=== PATIENT | female | born 1975 | race Caucasian/White ===

== ENCOUNTER 2017-03-11 16:26 | Emergency (ER) | payer OTHER ==
[2017-03-11 16:46] VITALS: BP 115/72
[2017-03-11] MEDS ORDERED: Ibuprofen TAB* 600 MG PO ONE (17:05)
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
== END 2017-03-11 17:33 | disposition home or self-care (01) ==
LOC: UCCORT 16:26
DX: R07.0 Pain in throat (principal); R51 Headache; Y04.0XXA Assault by unarmed brawl or fight, initial encounter; Z88.6 Allergy status to analgesic agent; Z88.0 Allergy status to penicillin; Z88.5 Allergy status to narcotic agent
CPT/HCPCS: 99212; A9270-GY; G0463

== ENCOUNTER 2017-09-14 09:32 | Emergency (ER) | payer OTHER ==
[2017-09-14 09:53] VITALS: BP 121/84
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
== END 2017-09-14 11:31 | disposition home or self-care (01) ==
LOC: UCCORT 09:32
DX: Z88.6 Allergy status to analgesic agent (principal); Z88.5 Allergy status to narcotic agent; Z88.0 Allergy status to penicillin; Z88.8 Allergy status to other drugs, medicaments and biological substances; S50.11XA Contusion of right forearm, initial encounter; W22.8XXA Striking against or struck by other objects, initial encounter; Y93.89 Activity, other specified; Y92.9 Unspecified place or not applicable
CPT/HCPCS: 99212; G0463

== ENCOUNTER 2018-10-07 10:57 | Emergency (ER) | payer OTHER ==
--- OUTSIDE RECORDS SUMMARY | 2018-10-07 11:08 | XMS REPORT | Continuity of Care Document ---
:1975 External Reference #:[id number] Author Name Darlene Price Care Team Providers Name Role Phone Jerome Yanez MD Care Team Information Research Coordinator Unavailable Rhianna Umaña PA Primary Care Physician Unavailable Payers Date Identification Numbers Payment Provider Subscriber Effective: 2011 Policy Number: [id number] [employer] Charito Webster PayID: [id number] [address] [place] [address] Advance Directives Description No Information Available Problems Active Problems Provider Date Residual hemorrhoidal skin tags Fritz Silvestre MD Onset: 05/13/2011 Abdominal pain Shilo Cardona MD Onset: 03/21/2018 Duodenitis Justin Glover MD Onset: 04/01/2017 Gastroduodenitis Justin Glover MD Onset: 04/01/2017 Heartburn Justin Glover MD Onset: 12/22/2016 Digestive symptom Justin Glover MD Onset: 12/22/2016 Chronic nonalcoholic liver disease Justin Glover MD Onset: 12/22/2016 Large liver Justin Glover MD Onset: 12/22/2016 Family History Date Family Member(s) Observation Comments Father Seasonal Allergies Father Back issues Mother Asthma Mother Seasonal Allergies Siblings 1 Grandfather Stomach Cancer Grandmother Breast Cancer Great grandmother & spider cancer Paternal Grandmother Esophagus Cancer Maternal Grandfather Stomach Cancer Uncle Colon Cancer Uncle Oral Cancer Social History Type Date Description Comments Sex Unknown Marital Status Negative For Lives With Daughters 2 Diet Patient follows no dietary restrictions Occupation Disabled Occupation Homemaker Work Status Disabled Hand Dominance Right-handed Tobacco Use Start: Unknown Never Smoked Cigarettes Tobacco Use Start: Unknown Never Smoked Cigars Tobacco Use Start: Unknown Never Smoked A Pipe Smoking Status Reviewed: 12/22/16 Never Smoked A Pipe Smokeless Tobacco Never Used Smokeless Tobacco ETOH Use Has consumed alcohol in the past Tobacco Use Start: Unknown Patient has never smoked Recreational Drug Use Former Drug User marijuana Allergies, Adverse Reactions, Alerts Active Allergies Reaction Severity Comments Date Vicodin hyperventilate & syncope 05/06/2011 Penicillins rash 05/06/2011 Amitriptyline 12/22/2016 Ibuprofen 10/27/2017 Venlafaxine 10/27/2017 Medications Active Medications SIG Qnty Indications Ordering Date Provider Calcium Citrate + D 1 tab po bid Shilo Cardona, 03/21/2018 Tylenol prn Unknown 325mg Tablets Omeprazole 1 by mouth bid Unknown 20mg Capsules DR Levothyroxine Sodium 1 by mouth every Unknown 75mcg day Tablets Minocycline HCL 1 by mouth every Unknown 100mg day Capsules Cyclobenzaprine HCL 1 by mouth three Unknown 10mg times a day Tablets Gabapentin 1 three times a Unknown 600mg Capsules day Symbicort 2 puff twice a Unknown 160-4.5mcg/Act day Aerosol Ventolin HFA take 2 puffs Unknown 108(90Base) every 6 hours as mcg/Act Aerosol needed for shortness of breath. Multivitamin Childrens 2 chewtabs po Unknown daily Chewtabs B12 1 by mouth every Unknown Tablets day Vitamin D3 1 by mouth every Unknown 1000Unit Capsules day History Medications Lyrica 1 po tid Unknown - 12/22/2016 75mg Capsules Cephalexin 1 tab po qid pc 28caps Unknown - Unknown 500mg Capsules Meloxicam 1 by mouth every day Unknown - Unknown 15mg Tablets c food Metformin HCL ER Take One Tablet By Unknown - 03/21/2018 500mg Mouth Every Day Tablets ER 24HR Medications Administered in Office Medication SIG Qnty Indications Ordering Provider Date Betamethasone Acetate & Lisa Gross, [facility] 10/27/2017 Sodium Phosphate 3 MG Of Each Injection Betamethasone Acetate & Lisa Gross, [facility] 10/27/2017 Sodium Phosphate 3 MG Of Each Injection Immunizations Description No Information Available Vital Signs Date Vital Result Comment 09/12/2018 10:27am BP Systolic Sitting Left Arm 114 mmHg BP Diastolic Sitting Left Arm 70 mmHg Heart Rate 71 /min Respiratory Rate 16 /min Height 66.5 inches 5'6.50" Weight 239.00 lb BMI (Body Mass Index) 38.0 kg/m2 BSA (Body Surface Area) 2.17 m2 [place] body weight in kilograms 60 kg O2 % BldC Oximetry 99 % Ra 03/21/2018 1:56pm BP Systolic Sitting Left Arm 131 mmHg BP Diastolic Sitting Left Arm 93 mmHg Heart Rate 83 /min Respiratory Rate 18 /min Height 66.5 inches 5'6.50" Weight 285.00 lb BMI (Body Mass Index) 45.3 kg/m2 BSA (Body Surface Area) 2.34 m2 [place] body weight in kilograms 60 kg O2 % BldC Oximetry 99 % 11/25/2017 9:51am BP Systolic Sitting Left Arm 132 mmHg BP Diastolic Sitting Left Arm 81 mmHg Body Temperature 98.2 F Heart Rate 77 /min Respiratory Rate 18 /min Height 66.5 inches 5'6.50" Weight 328.00 lb BMI (Body Mass Index) 52.1 kg/m2 BSA (Body Surface Area) 2.48 m2 [place] body weight in kilograms 60 kg O2 % BldC Oximetry 97 % 10/27/2017 2:50pm BP Systolic 125 mmHg BP Diastolic 83 mmHg Body Temperature 99.1 F Heart Rate 110 /min Respiratory Rate 17 /min Height 66.5 inches 5'6.50" Weight 323.00 lb BMI (Body Mass Index) 51.3 kg/m2 BSA (Body Surface Area) 2.47 m2 [place] body weight in kilograms 60 kg O2 % BldC Oximetry 98 % room air Pain Level 7 09/28/2017 10:13am BP Systolic Sitting Left Arm 140 mmHg BP Diastolic Sitting Left Arm 84 mmHg Heart Rate 82 /min Respiratory Rate 16 /min Height 66 inches 5'6" Weight 319.00 lb BMI (Body Mass Index) 51.5 kg/m2 BSA (Body Surface Area) 2.44 m2 [place] body weight in kilograms 59 kg 04/01/2017 10:15am BP Systolic Sitting Left Arm 138 mmHg BP Diastolic Sitting Left Arm 90 mmHg Heart Rate 94 /min Respiratory Rate 16 /min Height 66 inches 5'6" Weight 304.00 lb BMI (Body Mass Index) 49.1 kg/m2 BSA (Body Surface Area) 2.39 m2 [place] body weight in kilograms 59 kg 12/22/2016 12:54pm BP Systolic Sitting Left Arm 126 mmHg BP Diastolic Sitting Left Arm 86 mmHg Heart Rate 88 /min Respiratory Rate 16 /min Height 66 inches 5'6" Weight 321.00 lb BMI (Body Mass Index) 51.8 kg/m2 BSA (Body Surface Area) 2.45 m2 [place] body weight in kilograms 59 kg 05/13/2011 11:22am BP Systolic Sitting Left Arm 112 mmHg BP Diastolic Sitting Left Arm 81 mmHg Heart Rate 66 /min Height 66 inches 5'6" Weight 277.00 lb w/ clothes & shoes BMI (Body Mass Index) 44.7 kg/m2 Results Test Date Facility Test Result H/L Range Note Laboratory test 09/29/2017 [facility] Hepatitis C 0.1 s/corat 0.0-0.9 1, [address] [place] [address] [phone] HCV Rna By PCR 09/29/2017 [facility] Hepatitis C HCV Not . 3 (Quant) [address] [place] [place] [address] IU/mL [phone] Test Info (SEE NOTE) 4 Hepatitis C Virus 09/29/2017 [facility] Hepatitis C (SEE NOTE) 5 Genotyping [address] Genotype [place], [place] [id number] [phone] Test Comment (SEE NOTE) 6 Ceruloplasmin 12/24/2016 [facility] Ceruloplasmin 29.2 mg/dL 19.0-39.[address] [place] [address] [phone] Height 66 INCH Weight 322 LBS Anti-Nuclear 12/24/2016 [facility] Anti-Nuclear Negative Negative Antibodies [address] Antibodies AU/[place] [address] Direct [phone] Height 66 INCH Weight 322 LBS Actin (Smooth 12/24/2016 [facility] Actin (Smooth 11 units 0-19 8 Muscle) Antibody [address] Muscle) [place] [address] [phone] Height 66 INCH Weight 322 LBS Mitochondrial 12/24/2016 [facility] Mitochondrial 3.2 units 0.0-20.0 9 (M2) Antibodies [address] (M2) [place] [address] [phone] Height 66 INCH Weight 322 LBS Pydar-8-Rzyiksnmfep,Serum 12/24/2016 [facility] Hequk-1-Lkovktewane,Serum 126 90-[address] mg/[place] [address] [phone] Height 66 INCH Weight 322 LBS HCV Rna PCR,Quant 12/24/2016 [facility] Hepatitis C <15 IU/mL . 10 [address]lex Merry [address] [place] [address] [phone] HCV Rna Copies Log 10 (SEE NOTE) [id number] 11 Test Information: (SEE NOTE) 12 HCV Genotype (SEE NOTE) 13 Height 66 INCH Weight 322 LBS Free T4 12/24/2016 [facility] Free T4 1.00 ng/dL N 0.76-1.46 [address] [place], [place] [address] [phone] Reflex add FT3? Y Reflex add FT4? Y Free T3 12/24/2016 [facility] Free T3 2.58 pg/mL N 2.18-3.[address] [place], [place] [address] [phone] Reflex add FT3? Y Reflex add FT4? Y C-Reactive 12/24/2016 [facility] C-Reactive 8.3 mg/L High <3.0 Protein,Quant [address] Protein,Quant [place], [place] [address] [phone] Reflex add FT3? Y Reflex add FT4? Y Protein 12/24/2016 [facility] Protein,Total,Serum 6.5 g/dL 6.0-8.5 Electro.,S [address] [place] [address] [phone] Albumin 3.3 g/dL 2.9-4.4 Qnbvv-2-Vfrwfxju 0.2 g/dL 0.0-0.4 Jfluo-3-Pnucyhjf 0.7 g/dL 0.4-1.0 Beta Globulin 1.2 g/dL 0.7-1.3 Gamma Globulin 1.1 g/dL 0.4-1.8 M-Jed Not Observed g/dL Not Observed Globulin, Total 3.2 g/dL 2.2-3.9 A/G Ratio 1.0 0.7-1.7 Please Note: (SEE NOTE) 14 P E Interpretation, Serum (SEE NOTE) 15 Height 66 INCH Weight 322 LBS Laboratory test 12/24/2016 [facility] Hepatitis A Negative Negative finding [address] [facility] [place] [address] [phone] Hepatitis A AB, 12/24/2016 [facility] Hepatitis A AB, Negative Negative Total [address] [place] [address] [phone] Height 66 INCH Weight 322 LBS Laboratory test 12/24/2016 [facility] Hepatitis B Core Negative Negative 16 finding 134 [facility] [place] [address] [phone] Hep B Core AB 12/24/2016 [facility] Hep B Core AB Negative Negative Total [address] [place], [place] [address] [phone] Height 66 INCH Weight 322 LBS Celiac Disease 12/24/2016 [facility] Immunoglobulin A 197 mg/dL 87-352 Comp AB Profile [address] [place] [address] [phone] Antigliadin Abs, IgG 3 units 0-19 17 Antigliadin Abs, IgA 5 units 0-19 18 Endomysial IgA Antibody Negative Negative t-Transglutaminase IgA <2 U/mL 0-3 19 t-Transglutaminase IgG <2 U/mL 0-5 20 Height 66 INCH Weight 322 LBS Iron-Tibc-%Sat 12/24/2016 [facility] Serum Iron 68 g/dL N 50-170 [address] [place] [address] [phone] Total Iron Binding Capacity 295 g/dL N 250-450 Transferrin %Saturation 23 % N 12-57 Reflex add FT3? Y Reflex add FT4? Y Ferritin 12/24/2016 [facility] Ferritin 29 ng/mL N 8-252 [address] [place] [address] [phone] Reflex add FT3? Y Reflex add FT4? Y Hess Fibrosure 12/24/2016 [facility] Hess Fibrosis Score 0.04 0.00-0.[address] [place], [place] [address] [phone] Hess Fibrosis Stage (SEE NOTE) 21 Hess Steatosis Score 0.95 High 0.00-0.30 Hess Steatosis Grade (SEE NOTE) 22 Hess Score 0.50 0.25 Hess Grade (SEE NOTE) 23 Height 66 Inches . Weight Measured 322 LBS . Wzugc-2-Dgsrlnbmmcksy 158 mg/dL 110-276 Haptoglobin 188 mg/dL 34-200 Apolipoprotein A-1 124 mg/dL 116-209 Bilirubin,Total 0.2 mg/dL 0.0-1.2 GGT 14 IU/L 0-60 Alt (SGPT) 22 IU/L 0-40 Alt (Sgot) P5P 23 IU/L 0-40 Cholesterol,Total 150 mg/dL 100-199 Glucose, Serum 87 mg/dL 65-99 Triglycerides 249 mg/dL High 0-149 Hess Interpretations: (SEE NOTE) 24 Fibrosis Scoring (SEE NOTE) 25 Steatosis Grading (SEE NOTE) 26 Hess Scoring (SEE NOTE) 27 Hess Limitations (SEE NOTE) 28 Hess Comment 2 (SEE NOTE) 29 Height 66 INCH Weight 322 LBS Triglycerides 12/24/2016 [facility] Triglycerides 230 mg/dL High <[address] [place], [place] [address] [phone] Reflex add FT3? Y Reflex add FT4? Y Laboratory 12/24/2016 [facility] Sedimentation 23 mm/hr High 0-20 31 test finding [address] Rate [place], [place] [address] [phone] TSH Reflex FT4 12/24/2016 [facility] Thyroid Stim 4.58 High 0.30-4.2 And/Or FT3 [address] Hormone uIU/mL 0 [place], [place] [address] [phone] Reflex add FT3? Y Reflex add FT4? Y Laboratory test 12/23/2016 [facility] Pancreatic Elastase > 500.0 ug/g >[address] (Pe-1) [place], [place] [address] [phone] Ova & Parasite 12/23/2016 [facility] Cryptosporidium NEGATIVE FOR 33 Antigen Screen [address] Specific Ag CRY <SEE [place], [place] [facility] NOTE> [phone] Giardia Specific Antigen NEGATIVE FOR RAYMOND <SEE NOTE> 34 Stool Culture 12/23/2016 [facility] Stool Culture NO ENTERIC PATHO [address] <SEE NOTE> EILEEN Fishman [facility] [phone] . ................ <SEE NOTE> N 36 Note: INCLUDES TESTING <SEE NOTE> N 37 . PLESIOMONAS, CAM <SEE NOTE> N 38 . ................ <SEE NOTE> N 39 . YERSINIA AND VIB <SEE NOTE> N 40 . SHOULD BE REQUES <SEE NOTE> N 41 Shiga Toxin 1 Antigen SHIGA TOXIN 1 NO <SEE NOTE> 42 Shiga Toxin 2 Antigen SHIGA TOXIN 2 NO <SEE NOTE> 43 Fecal Fat, Qualitative 12/23/2016 [facility] Fats, Neutral Normal . [address] EILEEN Fishman [facility] [phone] Fats, Total Normal . 45 Laboratory 12/23/2016 [facility] Calprotectin, 20 ug/g 0-120 46 test finding [address] Fecal EILEEN Fishman [facility] [phone] Xray 12/11/2016 [facility] - Radiology CT, Abdomen & <pending [address] Pelvis W Contrast > EILEEN Fishman [facility] [phone] Laboratory 11/12/2016 [facility] Thyroid Stim 6.72 High 0.30-4.20 47 test finding [address] Hormone uIU/mL [place] [facility] [phone] Free T4 0.89 ng/dL N 0.76-1.46 Laboratory test 09/29/2016 [facility] Thyroid Stim 5.25 High 0.30-4.20 [address] Hormone uIU/[place] [address] [phone] Free T4 0.83 ng/dL N 0.76-1.46 1 K76.0 2 INFCE Result Units: s/co ratio Negative: < 0.8 Indeterminate: 0.8 - 0.9 Positive: > 0.9 The CDC recommends that a positive HCV antibody result be followed up with a HCV Nucleic Acid Amplification test (547468). Performed at: [address] [id number] Table Keeper: Rachael Ramsey MD, Phone: [phone] 3 HCV Not Detected 4 The quantitative range of this assay is 15 IU/mL to 100 million IU/mL. 5 Specimen has insufficient hepatitis C virus RNA to obtain genotyping results. This genotyping assay should only be used for known HCV positive patients with HCV RNA levels above 1000 IU/mL. 6 This test was developed and its performance characteristics determined by [facility]. It has not been cleared or approved by the U.S. Food and Drug Administration. The FDA has determined that such clearance or approval is not necessary. This test is used for clinical purposes. It should not be regarded as investigational or for research. Performed at: [address] [id number] Table Keeper: Rachael Ramsey MD, Phone: [phone] Performed at: [address] [id number] Table Keeper: Jerome Luke MD, Phone: [phone] 7 R16.0,R19.4 8 Negative 0 - 19 Weak positive 20 - 30 Moderate to strong positive >30 Actin Antibodies are found in 52-85% of patients with autoimmune hepatitis or chronic active hepatitis and in 22% of patients with primary biliary cirrhosis. 9 Negative 0.0 - 20.0 Equivocal 20.1 - 24.9 Positive >24.9 Mitochondrial (M2) Antibodies are found in 90-96% of patients with primary biliary cirrhosis. 10 HCV RNA detected 11 Unable to calculate result since non-numeric result obtained for component test. 12/29/16 0005: HCV log10 previously reported as: log10 IU Amended result called to: [] - 12/29/16 at 0005 12 The quantitative range of this assay is 15 IU/mL to 100 million IU/mL. Performed at: [address] [id number] Table Keeper: Rachael Ramsey MD, Phone: [phone] Performed at: [address] [id number] Table Keeper: Jerome Luke MD, Phone: [phone] 13 Not indicated 14 Protein electrophoresis scan will follow via computer, mail, or salesperson children's shoes delivery. 15 The SPE pattern appears essentially unremarkable. Evidence of monoclonal protein is not apparent. 16 Performed at: - [facility] [id number] Table Keeper: Rachael Ramsey MD, Phone: [phone] 17 Negative 0 - 19 Weak Positive 20 - 30 Moderate to Strong Positive >30 18 Negative 0 - 19 Weak Positive 20 - 30 Moderate to Strong Positive >30 19 Negative 0 - 3 Weak Positive 4 - 10 Positive >10 Tissue Transglutaminase (tTG) has been identified as the endomysial antigen. Studies have demonstr- ated that endomysial IgA antibodies have over 99% specificity for gluten sensitive enteropathy. 20 Negative 0 - 5 Weak Positive 6 - 9 Positive >9 21 F0 - No fibrosis 22 S3 - Marked or Severe Steatosis 23 N1 - Borderline or probable HESS 24 Quantitative results of 10 biochemicals in combination with age, gender, height, and weight, are analyzed using a computational algorithm to provide a quantitative surrogate marker (0.0-1.0) of liver fibrosis (Metavir F0-F4), hepatic steatosis (0.0-1.0, S0-S3), and Non-Alcoholic Steato- Hepatitis (HESS) (0.0-0.75, N0-N2). The absence of steatosis (S<0.38) precludes the diagnosis of HESS. Fibrosis marker: In a study of 171 Non-Alcoholic Fatty Liver Disease (NAFLD) patients where 23% had significant NAFLD fibrosis (Metavir F2-F4) and 11% had cirrhosis by liver biopsy, a fibrosis result of >0.3 yielded a sensitivity of 83% and a specificity of 78% for the detection of significant fibrosis(1). Steatosis Marker: In a population of 744 patients (583 HCV, 18 HBV, 69 NAFLD, and 74 alcoholic disease patients), where 36% had significant steatosis (>5%) on a liver biopsy, a steatosis score >0.5 had a sensitivity of 71% and a specificity of 72% for identification of significant steatosis(2). HESS marker: In a population of 257 NAFLD patients, where 62% had at least some HESS by liver biopsy, a prediction of HESS had a sensitivity of 88% for identifying HESS and a specificity of 50%(3). 25 <0.21=Stage F0 - No fibrosis 0.21 - 0.27=Stage F0 - F1 0.27 - 0.31=Stage F1 - Portal fibrosis 0.31 - 0.48=Stage F1 - F2 0.48 - 0.58=Stage F2 - Bridging fibrosis with few septa 0.58 - 0.72=Stage F3 - Bridging fibrosis with many septa 0.72 - 0.74=Stage F3 - F4 >0.74=Stage F4 - Cirrhosis 26 < 0.30=S0 - No Steatosis 0.30 to 0.38=S0 - S1 0.38 to 0.48=S1 - Minimal Steatosis 0.48 to 0.57=S1 - S2 0.57 to 0.67=S2 - Moderate Steatosis 0.67 to 0.69=S2 - S3 > 0.69=S3 - Marked or Severe Steatosis 27 0.25=N0 - Not HESS 0.50=N1 - Borderline or probable HESS 0.75=N2 - HESS 28 HESS FibroSure is recommended for patients with suspected non-alcoholic fatty liver disease. It is not recommended for patients with other liver diseases. It is also not recommended in patients with Gilbert Disease, acute hemolysis, acute viral hepatitis, drug induced hepatitis, genetic liver disease, autoimmune hepatitis and/or extra- hepatic cholestasis. Any of these clinical situations may lead to inaccurate quantitative predictions of fibrosis. 29 This test was developed and its performance characteristics determined by [facility]. It has not been cleared or approved by the Food and Drug Administration. The FDA has determined that such clearance or approval is not necessary. For questions regarding this report please contact customer service at . References: 1. Polly Reinoso et al. Diagnostic Value of Biochemical Markers (FibroTest) for the prediction of Liver Fibrosis in patients with Non-Alcoholic Fatty Liver Disease. BMC Gastroenterology 2006; 6:6. 2. Slava Perez. et al. The Diagnostic Value of Biomarkers (Steato Test) for the Prediction of Liver Steatosis. Comparative Hepatol. 2005; 4:10. 3. Slava Perez, Salome Matias, et al. Diagnostic value of biochemical markers (HESS TEST) for the prediction of non alcohol steato hepatitis in patients with non- alcoholic fatty liver disease. BMC Gastroenterology 2006; 6:34 doi:10.1186/2095-566B-2-34. 30 Reference Guidelines*: Normal: ............. < 150 mg/dL Borderline High: .... 150-199 mg/dL High: ............... 200-499 mg/dL Very High: .......... > 500 mg/dL * Source: National Cholesterol Education Program (NCEP) 31 Method: Sediplast Modified Westergren 32 INFCE Result Units: ug Elast./g Severe Pancreatic Insufficiency: <100 Moderate Pancreatic Insufficiency: 100 - 200 Normal: >200 Performed at: [facility] [address] [id number] Table Keeper: Rachael Ramsey MD, Phone: [phone] Performed at: [facility] [address] [id number] Table Keeper: Jerome Luke MD, Phone: [phone] 33 NEGATIVE FOR CRYPTOSPORIDIUM SPECIFIC ANTIGEN 34 NEGATIVE FOR GIARDIA SPECIFIC ANTIGEN. The specimen will be held for 5 days. Additional testing may be performed upon request if the antigen tests are negative, and the patient is still symptomatic or has traveled to an endemic region. Method: Alere Quik Chek Rapid Membrane Enzyme Immunoassay 35 NO ENTERIC PATHOGENS ISOLATED 36 ................................................... 37 INCLUDES TESTING FOR SALMONELLA, SHIGELLA, AEROMONAS, 38 PLESIOMONAS, CAMPYLOBACTER, AND E. COLI 0157:H7 39 ................................................... 40 YERSINIA AND VIBRIO ARE NOT ROUTINELY SCREENED FOR AND 41 SHOULD BE REQUESTED SEPARATELY 42 SHIGA TOXIN 1 NOT DETECTED 43 SHIGA TOXIN 2 NOT DETECTED Method: ImmunoCard STAT/EHEC Rapid Immunochromatographic Assay 44 Normal (<60 Droplets/HPF) 45 Normal (<100 Droplets/HPF) 46 Concentration Interpretation Follow-Up <16 - 50 ug/g Normal None >50 -120 ug/g Borderline Re-evaluate in 4-6 weeks >120 ug/g Abnormal Repeat as clinically indicated 47 E07.89,E04.2 48 E04.2 E07.89 Procedures Date Code Description Status 11/25/2017 21276 Radiology, Wrist Complete Completed 10/27/2017 33444 Radiology, Wrist Complete Completed 10/27/2017 41414 Radiology, Wrist Complete Completed 10/27/2017 89151 Aspiration/Injection joint Completed intermediate(wrist/ankle/elbow/olbursa 12/28/2016 00611 EGD With Biopsy Completed 10/29/2013 06339 Anesthesia, Hysteroscopy, Hystersalpingography Completed Encounters Type Date Location Provider Dx Diagnosis Office Visit 03/21/2018 JAD Cardona, R10.9 Unspecified 2:00p MD Shilo abdominal pain Office Visit 11/25/2017 Orthopaedic Office Lisa Gross M25.531 Pain in right 9:45a S., [facility] wrist Office Visit 10/27/2017 Orthopaedic Office Lisa Gross M25.531 Pain in right 2:15p S., [facility] wrist Office Visit 09/28/2017 JAD Glover MD R16.0 Hepatomegaly, not 10:00a elsewhere classified K76.0 Fatty (change of) liver, not elsewhere classified K29.70 Gastritis, unspecified, without bleeding K29.80 Duodenitis without bleeding Office Visit 04/01/2017 10:15a JAD Glover MD R16.0 Hepatomegaly, not elsewhere classified K76.0 Fatty (change of) liver, not elsewhere classified K29.70 Gastritis, unspecified, without bleeding K29.80 Duodenitis without bleeding R19.4 Change in bowel habit 2 Heartburn Office Visit 12/22/2016 1:00p JAD Glover MD R16.0 Hepatomegaly, not elsewhere classified K76.0 Fatty (change of) liver, not elsewhere classified R19.4 Change in bowel habit R12 Heartburn Office Visit 05/13/2011 11:00a Surgical Office Fritz Silvestre, 455.9 Hemorrhoidal Skin MD Tags Residual Plan of Treatment Future Appointment(s):11/02/2018 2:45 pm - Shilo Cardona MD at 09/12/2018 - Shilo Cardona, MDR10.9 Unspecified abdominal painComments:s/p bariatric surgery. small bowel series was normalarrange for EGD
[2018-10-07 11:38] VITALS: BP 109/79
--- NOTE | 2018-10-07 11:49 | UC ---
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 She's had no complications - History Of Current Complaint Chief Complaint: UCGeneralIllness Stated Complaint: SUTURE REMOVAL Time Seen by Provider: 10/07/18 11:39 Hx Obtained From: Patient Hx Last Menstrual Period: 08/21/17 Surgical Site: Left posterior arm with approximately [address] Severity: Mild Pain Intensity: 0 Procedure Type: Removal of a melanoma - Allergies/Home Medications Allergies/Adverse Reactions: Allergies Allergy/AdvReac Type Severity Reaction Status Date / Time acetaminophen [From Vicodin] Allergy Dizziness Verified 10/07/18 11:32 amitriptyline Allergy Hives Verified 10/07/18 11:32 hydrocodone Allergy Dizziness Verified 10/07/18 11:32 ibuprofen Allergy Hives Verified 10/07/18 11:32 Penicillins Allergy Hives Verified 10/07/18 11:32 shellfish derived Allergy Swelling Verified 10/07/18 11:32 Of Face,Lips,& Throat venlafaxine Allergy See Comment Verified 10/07/18 11:32 PMH/Surg Hx/FS Hx/Imm Hx Previously Healthy: Yes Endocrine History: Thyroid Disease Cardiovascular History: Hypertension - Surgical History Surgical History: Yes Surgery Procedure, Year, and Place: Thyroid surgery 2017. nasal surgery. tonsillectomy. cyst removal right armpit. tubal ligation. ablation - Family History Known Family History: Positive: Hypertension - Social History Alcohol Use: None Substance Use Type: None Smoking Status (MU): Never Smoked Tobacco Have You Smoked in the Last Year: No Review of Systems All Other Systems Reviewed And Are Negative: Yes Skin: Positive: Other - Healed surgical site left posterior arm Is Patient Immunocompromised?: No Physical Exam Triage Information Reviewed: Yes Appearance: Well-Appearing, No Pain Distress, Well-Nourished Vital Signs: Initial Vital Signs Temp 98.1 F 10/07/18 11:31 Pulse 61 10/07/18 11:31 Resp 16 10/07/18 11:31 BP 109/79 10/07/18 11:31 Pulse Ox 100 10/07/18 11:31 Vital Signs Reviewed: Yes Skin: Positive: Other - Healed surgical incision left posterior arm. Sutures removed without difficulty, pt tolerated procedure well, steri-strips applied for reinforcement for 4-5 days. Course/Dx - Course Course Of Treatment: Sutures removed without difficulty. - Diagnosis Provider Diagnosis: Encounter for removal of sutures Discharge - Sign-Out/Discharge Documenting (check all that apply): Patient Departure All imaging exams completed and their final reports reviewed: No Studies - Discharge Plan Condition: Good Disposition: HOME Patient Education Materials: Stitches Removal (ED) Referrals: Douglas Umaña PA [Primary Care Provider] - Additional Instructions: Keep the Steri-Strips in place for about 5 or 6 days. Watch for signs of infection. Follow-up with her doctor if any concerns. - Billing Disposition and Condition Condition: GOOD Disposition: Home - Attestation Statements Provider Attestation: Per institutional requirements, I have reviewed the chart, however, I was not consulted specifically or made aware of this patient by the midlevel provider. I did not personally evaluate, interact with , or disposition this patient.
== END 2018-10-07 12:00 | disposition home or self-care (01) ==
LOC: UCCORT 10:57
DX: Z48.02 Encounter for removal of sutures (principal); I10 Essential (primary) hypertension; Z88.8 Allergy status to other drugs, medicaments and biological substances; Z88.0 Allergy status to penicillin; Z88.5 Allergy status to narcotic agent; Z91.013 Allergy to seafood
CPT/HCPCS: 99212; G0463